=== PATIENT | female | born 1990 | race American Indian/Alaskan Native ===

== ENCOUNTER 2017-06-19 11:39 | Emergency (ER) | payer MEDICARE ==
[2017-06-19] MEDS ORDERED: NACL 0.9% 1000 ML 1,000 ML IV ONE (13:06)
[2017-06-19] MEDS ORDERED: ATIVAN PO ONE (13:07)
--- NOTE | 2017-06-19 13:10 | Emergency Department Report ---
ED Seizure HPI - General Chief Complaint: Seizure Stated Complaint: SEIZURE Time Seen by Provider: 06/19/17 12:58 Source: patient, EMS Mode of arrival: Stretcher Limitations: No Limitations - History of Present Illness Initial Comments: 19-year-old female with known seizure history here with complaint of seizure. Patient had 4 clustered tonoclonic seizures that started around 4 AM. Each one lasted approximately 2-3 minutes. She is currently on Vimpat and Tegretol and has had one seizure since May 06. She recently had an ablation procedure done at [place] in January. She denies fevers chills nausea vomiting. She does complain of some right eye pain. MD Complaint: seizure -: Sudden Description of Episode: tonic-clonic movement Witnessed:: Yes Trauma: No Seizure History: none Possible Precipitating Event: none Associated Symptoms: denies other symptoms Treatments Prior to Arrival: none - Related Data Home Medications Medication Instructions Recorded Confirmed Last Taken LORazepam [Ativan] 1 mg PO TID PRN 08/30/15 09/11/15 1 Week Ago Lacosamide [Vimpat] 150 mg PO BID 08/30/15 09/11/15 09/11/15 06:30 OXcarbazepine [Trileptal] 900 mg PO BID 08/30/15 09/11/15 09/11/15 06:30 Previous Rx's Medication Instructions Recorded Last Taken Type Ibuprofen [Motrin] 800 mg PO Q8HR PRN #60 tablet 09/11/15 Unknown Rx oxyCODONE /ACETAMINOPHEN [Percocet 1 tab PO Q6HR PRN #30 tablet 09/11/15 Unknown Rx 5/325] Erythromycin [Erythromycin Ophth 1 gm OU TID #1 tube 06/19/17 Unknown Rx Oint] Ibuprofen [Motrin] 600 mg PO Q8H PRN #30 tablet 06/19/17 Unknown Rx Allergies Allergy/AdvReac Type Severity Reaction Status Date / Time No Known Allergies Allergy Unverified 08/30/15 14:46 ED Review of Systems ROS: Stated complaint: SEIZURE Other details as noted in HPI Comment: All other systems reviewed and negative Constitutional: denies: chills, fever Eyes: eye pain. denies: eye discharge, vision change ENT: denies: ear pain, throat pain Respiratory: denies: cough, shortness of breath, wheezing Cardiovascular: denies: chest pain, palpitations Endocrine: no symptoms reported Gastrointestinal: denies: abdominal pain, nausea, diarrhea Genitourinary: denies: urgency, dysuria, discharge Musculoskeletal: denies: back pain, joint swelling, arthralgia Skin: denies: rash, lesions Neurological: denies: headache, weakness, paresthesias Psychiatric: denies: anxiety, depression Hematological/Lymphatic: denies: easy bleeding, easy bruising ED Past Medical Hx - Past Medical History Hx Hypertension: No Hx Renal Disease: No Hx Seizures: Yes (epilepsy x 3 yrs, grand mal seizures, last one 6 wks ago, on meds) Hx Asthma: Yes (as child) - Family History Family history: no significant - Social History Smoking Status: Current Every Day Smoker Substance Use Type: None - Medications Home Medications: Home Medications Medication Instructions Recorded Confirmed Last Taken Type LORazepam [Ativan] 1 mg PO TID PRN 08/30/15 09/11/15 1 Week Ago History Lacosamide [Vimpat] 150 mg PO BID 08/30/15 09/11/15 09/11/15 06:30 History OXcarbazepine [Trileptal] 900 mg PO BID 08/30/15 09/11/15 09/11/15 06:30 History Ibuprofen [Motrin] 800 mg PO Q8HR PRN #60 tablet 09/11/15 Unknown Rx oxyCODONE /ACETAMINOPHEN [Percocet 1 tab PO Q6HR PRN #30 tablet 09/11/15 Unknown Rx 5/325] Erythromycin [Erythromycin Ophth 1 gm OU TID #1 tube 06/19/17 Unknown Rx Oint] Ibuprofen [Motrin] 600 mg PO Q8H PRN #30 tablet 06/19/17 Unknown Rx ED Physical Exam - General Limitations: No Limitations General appearance: alert, in no apparent distress - Head Head exam: Present: atraumatic, normocephalic - Eye Eye exam: Present: PERRL Pupils: Present: normal accommodation - Expanded Eye Exam Expanded Eyelids: Normal Inspection: Right Pupils: Regular, Round: Bilateral Sclera/Conjunctival: Normal Inspection: Left, Injection: Right Posterior chamber: Deferred: Right - ENT ENT exam: Present: mucous membranes moist - Neck Neck exam: Present: normal inspection - Respiratory Respiratory exam: Present: normal lung sounds bilaterally. Absent: respiratory distress, wheezes, rales - Cardiovascular Cardiovascular Exam: Present: regular rate, normal rhythm. Absent: systolic murmur, diastolic murmur, rubs, gallop - GI/Abdominal GI/Abdominal exam: Present: soft, normal bowel sounds - Extremities Exam Extremities exam: Present: normal inspection - Back Exam Back exam: Present: normal inspection - Neurological Exam Neurological exam: Present: alert, oriented X3 - Psychiatric Psychiatric exam: Present: normal affect, normal mood - Skin Skin exam: Present: warm, dry, intact, normal color. Absent: rash ED Course Vital Signs 06/19/17 06/19/17 12:14 13:35 Temperature 99.7 F H Pulse Rate 93 H Respiratory 18 Rate Blood Pressure 121/84 O2 Sat by Pulse 93 100 Oximetry ED Medical Decision Making - Lab Data Result diagrams: 06/19/17 13:45 06/19/17 13:45 Laboratory Results - last 24 hr 06/19/17 06/19/17 06/19/17 13:45 13:45 13:45 WBC 12.3 H RBC 4.88 Hgb 12.9 Hct 39.9 MCV 82 MCH 27 L MCHC 32 RDW 14.8 Plt Count 221 Seg Neutrophils % Citrus Picker Sodium 139 Potassium 3.8 Chloride 99.1 Carbon Dioxide 22 Anion Gap 22 BUN 11 Creatinine 0.6 L Estimated GFR > 60 BUN/Creatinine Ratio 18.33 Glucose 91 Calcium 9.2 Total Bilirubin 0.30 AST 13 ALT 12 Alkaline Phosphatase 86 Total Protein 7.6 Albumin 4.4 Albumin/Globulin Ratio 1.4 HCG, Qual Negative - EKG Data -: EKG Interpreted by Ma - EKG Data 06/19/17 14:46 Sinus 94 normal axis normal intervals no ST-T wave changes - Radiology Data Radiology results: image reviewed No obvious acute infiltrate, mild cardiomegaly. - Medical Decision Making 19-year-old female with known history of seizure disorder here with multiple seizures. Plan check labs chest x-ray EKG UA and will reassess. Labs are unremarkable. Chest x-ray with a questionable enlargement of the heart silhouette. Given the patient's continued complaint of shortness of breath and decided to get a CT PE protocol. CT PE was negative and was effectively normal and showed a normal heart size. This point I will treat the patient for corneal abrasion and counseled her that she needs to continue to take her seizure medications. She is to follow-up with a primary neurology for her long- term seizure medication management. Portions of this chart were dictated with dictation software. There may be dictation errors contained within this note. Critical care attestation.: If time is entered above; I have spent that time in minutes in the direct care of this critically ill patient, excluding procedure time. ED Disposition Clinical Impression: Seizure, Corneal abrasion Disposition: - TO HOME OR SELFCARE Is pt being admited?: No Condition: Stable Instructions: Recurrent Seizures Adult (ED), Corneal Abrasion (ED) Prescriptions: Erythromycin [Erythromycin Ophth Oint] 1 gm OU TID #1 tube Ibuprofen [Motrin] 600 mg PO Q8H PRN #30 tablet PRN Reason: Pain Referrals: PRIMARY CARE, [Primary Care Provider] - 3-5 Days
[2017-06-19 14:13] LABS: Hematocrit 39.9 % (30.3-42.9); Hemoglobin 12.9 gm/dl (10.1-14.3); Mean Corpuscular HGB Conc 32 % (30-34); Mean Corpuscular Hemoglobin 27 pg (28-32); Mean Corpuscular Volume 82 fl (79-97); Platelet Count 221 K/mm3 (140-440); Red Blood Count 4.88 M/mm3 (3.65-5.03); Red Cell Distribution Width 14.8 % (13.2-15.2); White Blood Count 12.3 K/mm3 (4.5-11.0)
[2017-06-19 14:26] LABS: Alanine Aminotransferase 12 units/L (7-56); Albumin 4.4 g/dL (3.9-5); Albumin/Globulin Ratio 1.4 %; Alkaline Phosphatase 86 units/L (35-129); Anion Gap 22 mmol/L; BUN/Creatinine Ratio 18.33; Blood Urea Nitrogen 11 mg/dL (7-17); Calcium 9.2 mg/dL (8.4-10.2); Carbon Dioxide 22 mmol/L (22-30); Chloride 99.1 mmol/L (98-107); Glucose 91 mg/dL (65-100); Potassium 3.8 mmol/L (3.6-5.0); Sodium 139 mmol/L (137-145); Total Protein 7.6 g/dL (6.3-8.2)
[2017-06-19 14:55] LABS: Anisocytosis 1+; Basophils % (Manual) 0 % (0.0-1.8); Blastocytes % (Manual) 0 %; Diff Status Complete; Eosinophils % (Manual) 0 % (0.0-4.3); Platelet Estimate Consistent w Auto
[2017-06-19] MEDS ORDERED: FUL-GLO OP ONE ×2 (15:29→18:14)
[2017-06-19] MEDS ORDERED: ERYTHROMYCIN OPHTH OINT OU ONE (16:00)
[2017-06-19] MEDS ORDERED: NACL ONE (16:15)
--- NOTE | 2017-06-19 17:00 | Cat Scan Report ---
FINAL REPORT PROCEDURE: CT angiogram chest. TECHNIQUE: Computerized tomographic angiography of the chest was performed after the IV injection of iodinated nonionic contrast including image processing. The image data was postprocessed using 2-dimensional multiplanar reformatted (MPR) and 3-dimensional (MIP and/or volume rendered) techniques. HISTORY: Chest pain, shortness of breath. COMPARISON: No prior studies are available for comparison. FINDINGS: The trachea and central bronchi appear normal. The lungs are clear and well expanded. The thoracic aorta has a normal caliber without evidence of dissection. The pulmonary arteries enhance normally. There are no definite filling defects to indicate pulmonary embolism. There is no mediastinal adenopathy. The heart size is normal. There are no pleural effusions. The thoracic skeleton appears intact. IMPRESSION: Normal study.
[2017-06-19] MEDS ORDERED: BSS ONE (18:14)
[2017-06-19] MEDS ORDERED: TETRACAINE 0.5% ONE (18:14)
[2017-06-19 18:59] VITALS: BP 120/87
--- NOTE | 2017-06-20 09:11 | XRay Report ---
Single view chest: History: Seizure. Findings: Normal cardiomediastinal silhouette. Trachea is midline. No consolidation, pneumothorax or pleural effusion. Impression: No acute cardiopulmonary findings.
== END 2017-06-19 18:45 | disposition home or self-care (01) ==
LOC: ED 11:39
DX: G40.909 Epilepsy, unspecified, not intractable, without status epilepticus (principal); S05.01XA Injury of conjunctiva and corneal abrasion without foreign body, right eye, initial encounter; J45.909 Unspecified asthma, uncomplicated; F17.210 Nicotine dependence, cigarettes, uncomplicated; X58.XXXA Exposure to other specified factors, initial encounter; Y93.89 Activity, other specified; Y92.89 Other specified places as the place of occurrence of the external cause; Y99.8 Other external cause status
CPT/HCPCS: 36415; 71010; 71275; 80053; 84703; 85007; 85025; 93005; 93010; 96360; 96361; 99285; J7030; Q9967